=== PATIENT | female | born 1955 | race Caucasian/White ===

== ENCOUNTER → 2016-12-02 | Outpatient (CLI) | payer OTHER ==
[~2016-12-02] MED LIST: ACET1TAB84 PO; BIOTCAP2 PO; CETI10TA84 PO; CHOL100010 PO; ESTR0.3T PO; LEVO75TA PO; LISI20TA55 PO; VENL150C56 PO
--- NOTE | 2016-12-03 12:44 | MAMMOGRAPHY REPORT ---
BILATERAL DIGITAL SCREENING MAMMOGRAM TOMOSYNTHESIS WITH CAD: 12/02/2016 CLINICAL HISTORY: Routine screening. Patient has no complaints. TECHNIQUE: Breast tomosynthesis in addition to standard 2D mammography was performed. Current study was also evaluated with a Computer Aided Detection (CAD) system. COMPARISON: Comparison is made to exams dated: 07/21/2015 mammogram, 08/26/2010 mammogram - [facility], and 08/22/2009. BREAST COMPOSITION: There are scattered areas of fibroglandular density in both breasts. FINDINGS: No suspicious masses, calcifications, or areas of architectural distortion are noted in e ither breast. There has been no significant interval change compared to prior exams. Small 4 mm asy mmetry seen within the left superior posterior breast on the MLO view has the appearance of normal f ibroglandular tissue on the tomosynthesis images. IMPRESSION: ACR BI-RADS CATEGORY 2: BENIGN There is no mammographic evidence of malignancy. A 1 year screening mammogram is recommended. The p atient will receive written notification of the results. Approximately 10% of breast cancers are not detected with mammography. A negative mammographic repor t should not delay biopsy if a clinically suggestive mass is present. Taryn Moore M.D. /:12/02/2016 16:13:59 [employer]: Cherelle DUNBAR)([place])([place]), [facility] letter sent: Normal 1/2 BI-RADS Code: ACR BI-RADS Category 2: Benign
== END | disposition home or self-care (01) ==
LOC: C.MAMM 15:45
PROVIDERS: ATTEND Family Medicine
DX: Z12.31 Encounter for screening mammogram for malignant neoplasm of breast (principal)

== ENCOUNTER → 2016-12-31 | Outpatient (CLI) | payer OTHER | LOC: C.PAIN 11:30 ==

== ENCOUNTER → 2017-04-28 | Outpatient (CLI) | payer OTHER ==
--- NOTE | 2017-04-29 08:11 | DIAGNOSTIC IMAGING REPORT ---
CT OF THE CHEST WITHOUT IV CONTRAST CLINICAL HISTORY: Shortness of breath. Tobacco use. COMPARISON STUDY: Chest radiograph May 06, 2016. CT DOSE: 449.66 mGy.cm TECHNIQUE: Axial images of the chest were obtained without IV contrast. Images were reviewed in the axial, sagittal, and coronal planes. IV contrast was not administered for this examination. FINDINGS: No enlarged axillary, mediastinal or hilar lymph nodes are present. The heart is mildly enlarged. Ascending aorta is mildly dilated, measuring 3.9 cm at the level pf the main pulmonary artery. There is no pericardial effusion. The central airways are patent. There is moderate to severe upper lobe predominant emphysema. There are no suspicious pulmonary nodules. A few tiny calcified nodules are noted. These are benign. There are no areas of consolidation to suggest pneumonia. An intrathecal catheter is present. Bony thorax is unremarkable. Left kidney is not identified within the left renal fossa. Otherwise, the upper abdomen is unremarkable on this unenhanced study. IMPRESSION: 1. Moderate to severe upper lobe predominant emphysema. 2. No suspicious pulmonary nodules. 3. No acute intrathoracic findings. 4. Mild cardiomegaly and mild dilatation of the ascending aorta which measures 3.9 cm. Electronically signed by: Norman Fyre M.D. 04/29/2017 8:10 AM Dictated Date/Time: 04/28/2017 4:37 PM
== END | disposition home or self-care (01) ==
LOC: C.CTS 16:26
PROVIDERS: ATTEND Family Medicine
DX: F17.200 Nicotine dependence, unspecified, uncomplicated (principal); J43.9 Emphysema, unspecified

== ENCOUNTER → 2017-07-14 | Outpatient (CLI) | payer OTHER ==
[~2017-07-14] MED LIST changes: +GADAVIST IV PRN
--- NOTE | 2017-07-14 11:55 | DIAGNOSTIC IMAGING REPORT ---
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 Patient had a brain MR recently conducted at an outside institution which demonstrated a possible left adrenal lesion. This is a follow-up study. COMPARISON: Cervical spine MR 06/06/2014, CT maxillofacial study 12/15/2009. TECHNIQUE: Multiplanar multisequence MRI of the soft tissues of the neck was obtained both with and without the use of 10 ml Gadavist. FINDINGS: The imaged upper thorax and head structures show no gross abnormality. There is no focal bone marrow edema or fracture identified. There are apparent left greater than right perineural root sleeve cysts noted at the upper thoracic spine at T1-T2 measuring up to 1.6 x 1.0 cm. There is an ovoid circumscribed lesion with some marginal macro lobulations along its superior posterior margin which is T1 isointense to musculature and is avidly T2 hyperintense within the mid superficial parotid gland directly posterior to the mandible, 1.5 x 1.7 x 1.8 cm in AP, transverse and craniocaudal dimensions demonstrating avid central enhancement nicely seen on image 12 of the postcontrast axial T1 series. The superior margin of the lesion as well as a thin peripheral area laterally does not enhance. No associated invasion into adjacent structures. No additional enhancing lesions are identified. The right parotid gland is unremarkable. In retrospect, this lesion was likely present dating back to maxillofacial study 12/15/2009 and appeared similar in size. IMPRESSION: 1. Centrally enhancing T2 hyperintense circumscribed ovoid lesion of the left mid superficial parotid gland is noted measuring up to 1.8 cm without associated invasion into adjacent structures. In retrospect, this lesion was present on maxillofacial study dated 12/15/2009 and appears similar in size suggesting nonaggressive or benign characteristics. Differential considerations would include Warthin's tumors or pleomorphic adenoma among other etiologies. This could be further evaluated with tissue sampling. 2. No additional enhancing lesions are identified. The above report was generated using voice recognition software. It may contain grammatical, syntax or spelling errors. Electronically signed by: Gopal Juan M.D. 07/14/2017 11:53 AM Dictated Date/Time: 07/14/2017 11:38 AM
== END | disposition home or self-care (01) ==
LOC: C.MRI 09:43
PROVIDERS: ATTEND Family Medicine
DX: K11.8 Other diseases of salivary glands (principal)

== ENCOUNTER → 2017-10-04 | Outpatient (CLI) | payer OTHER ==
[~2017-10-04] MED LIST changes: -GADAVIST IV PRN
== END ==
LOC: C.PAIN 11:01

== ENCOUNTER 2023-11-17 06:27 | Observation (INO) ==
--- NOTE | 2023-10-18 10:44 | PAT Medication Instructions ---
Medication Instructions Date of Service October 18, 2023 Home Medications levothyroxine 75 mcg tablet 75 mcg PO QAM lisinopril 20 mg-hydrochlorothiazide 25 mg tablet 1 tab PO QAM venlafaxine 150 mg capsule,extended release 24 hr (Effexor XR) 150 mg PO QAM hydroxychloroquine 200 mg tablet (Plaquenil) 200 mg PO BID cetirizine 10 mg capsule 10 mg PO QAM allopurinol 100 mg tablet 100 mg PO BID folic acid 1 mg tablet 3 mg PO QAM methotrexate sodium 2.5 mg tablet 10 mg PO Q7D ASK your prescriber and surgeon hydroxychloroquine 200 mg tablet (Plaquenil) 200 mg PO BID STOP 7 days prior to surgery (if okay with prescriber) methotrexate sodium 2.5 mg tablet 10 mg PO Q7D DO NOT take the morning of surgery lisinopril 20 mg-hydrochlorothiazide 25 mg tablet 1 tab PO QAM cetirizine 10 mg capsule 10 mg PO QAM folic acid 1 mg tablet 3 mg PO QAM Take morning of surgery With a small sip of water, OTHERWISE NOTHING TO EAT OR DRINK AFTER MIDNIGHT: levothyroxine 75 mcg tablet 75 mcg PO QAM venlafaxine 150 mg capsule,extended release 24 hr (Effexor XR) 150 mg PO QAM allopurinol 100 mg tablet 100 mg PO BID Take evening before surgery allopurinol 100 mg tablet 100 mg PO BID Other Notes If you have any questions please call us at [phone] or [phone] or [phone] or [phone]
--- NOTE | 2023-10-24 10:36 | Anesthesiology Consultation ---
Date of Service October 24, 2023 Assessment & Plan (1) Encounter for pre-operative examination: - awaiting carotid imaging from PCP, Dr. Tabitha Weaver and pre-operative evaluation [phone]. I contacted PCP and spoke La who advised she will relay need for carotid imaging. PCP office scheduled appointment for evaluation 10/28/23 at 2 pm. Patient confirmed appointment date and time while at PAT appointment. Optimization form to be faxed regarding right carotid bruit, h/o TIA in 2017, intermittent dysarthria and dyspnea on exertion with PAT testing to [phone] per La with PCP office. - right carotid bruit: patient notes difficulty finding words ongoing over the past year; denies recent change or worsening. No difficulty finding words per patient today in PAT clinic, patient speaking clearly, coherently without evident difficulty finding words throughout visit. She denies dizziness, lightheadedness, presyncope, visual changes, altered speech, confusion, imbalance, numbness, weakness or headache. Patient made aware of carotid bruit a nd need for PCP evaluation and imaging. She was instructed to call 911 for new or changed symptoms. Patient states PCP is aware of intermittent difficulty finding words and patient was evaluated earlier this year. She is aware carotid imaging will be needed prior to surgery through PCP and she is agreeable, denied questions or concerns. - spinal cord stimulator: patient aware to bring remote to hospital DOS. Chart Review Chart Review: Pending: Refer to Additional Notes / Consult section and Patient seen in Pre Admission Testing Teaching & Discussion Pre-Anesthesia Teaching/Discussion Notes: Instructed NPO after midnight before surgery, except medications with 15 cc of water. Medication instructions provided according to the PAT guidelines. History Surgery Operation Date: 11/18/23 07:00 Proposed Procedures p Left Reverse Total Shoulder Arthroplasty - Kirby Alvarez DO Height/Weight Height: 5 ft 2 in Weight: 75.9 kg Allergies Allergy/AdvReac Type Severity Reaction Status Date / Time NSAIDS (Non-Steroidal AdvReac Severe Worsened Verified 10/20/23 10:23 Anti-Inflamma kidney function Sulfa (Sulfonamide AdvReac Intermediate Yeast Verified 10/20/23 10:23 Antibiotics) infections Medications Home Medications Medication Instructions Recorded Confirmed Last Taken levothyroxine 75 mcg tablet 75 mcg PO QAM 02/08/19 10/18/23 02/28/19 lisinopril 20 1 tab PO QAM 02/08/19 10/18/23 02/28/19 mg-hydrochlorothiazide 25 mg tablet venlafaxine 150 mg 150 mg PO QAM 02/08/19 10/18/23 02/28/19 capsule,extended release 24 hr (Effexor XR) hydroxychloroquine 200 mg tablet 200 mg PO BID 10/15/19 10/18/23 Unknown (Plaquenil) cetirizine 10 mg capsule 10 mg PO QAM 05/06/20 10/18/23 Unknown allopurinol 100 mg tablet 100 mg PO BID 10/18/23 10/18/23 Unknown folic acid 1 mg tablet 3 mg PO QAM 10/18/23 10/18/23 Unknown methotrexate sodium 2.5 mg tablet 10 mg PO Q7D 10/18/23 10/18/23 Unknown albuterol sulfate 90 mcg/actuation inhalation PRN Shortness Of Breath 10/24/23 Unknown breath activated powder inhaler Or Wheezing Additional Notes: Patient reported albuterol inhaler as needed. This was added to EMR, she was instructed to use inhaler as needed. She verbalized understanding and agreement, denied questions, concerns or medications. Past Medical History Medical History (Updated 10/24/23 @ 11:21 by Loly Sharma PA-C) Right carotid bruit noted at 10/24/23 PAT visit History of blood transfusion rossi-operative with right shoulder surgery Rheumatoid arthritis Taking MTX + Plaquenil Gout last flare one year ago Lumbar post-laminectomy syndrome Degenerative disc disease Kidney disease solitary kidney s/p left nephrectomy (d/t non-functioning per patient) Stage III Graves disease s/p "radioactive pill" Hypothyroidism Anemia Bipolar disorder Transient ischemic attack (TIA) 2016 Hypertension controlled, stable per pt Chronic obstructive pulmonary disease chronic, stable per pt; last rescue inhaler use one year ago Patient denies h/o seizures, heart attack, heart failure, DM, or blood clots/DVTs. Exercise / Class Metabolic Activity II 4-5 Yardwork/Stairs/Walk up hill (SOB with 1 FOS ongoing x yrs without change or worsening; denies chest discomfort) Past Family History Family History Mother Family history of diabetes mellitus Aunt Family history of diabetes mellitus Uncle Family history of diabetes mellitus Past Surgical History Surgical History (Updated 10/24/23 @ 10:49 by Loly Sharma PA-C) Hx of hand surgery right hand/wrist Hx of colonoscopy History of anesthesia reaction Numbness and difficulty taking deep breaths after right shoulder surgery (? r/t PNB); required supplemental oxygen per pt; denies re-intubation History of total abdominal hysterectomy and bilateral salpingo-oophorectomy History of repair of rotator cuff right x2 Spinal cord stimulator status advised to bring remote DOS Fusion of spine LUMBAR L4-S1 History of nephrectomy left History of cholecystectomy History of laparoscopy x2 History of tooth extraction History of endoscopic sinus surgery Past Anesthesia History No Family Hx of Anesthesia Complications and Other (Numbness and difficulty taking deep breaths after last shoulder surgery (? r/t PNB); required supplemental oxygen per pt; denies re-intubation) History of PONV No Hx of PONV and No Hx of Motion Sickness Social History Smoking Status: Current every day smoker (-advised) tobacco type: cigarettes Smoking cigarettes per day: 20 Do You Dip or Chew Tobacco: No Hx Alcohol Use: Yes Alcohol type: wine alcohol intake frequency: holidays/special occasions only Hx Substance Use: No substance use type: does not use Review of Systems Patient denies chest pain, snoring, witnessed apneas, reflux, fever, chills, cough, wheezing, or palpitations. Physical Exam Vital Signs Vitals BP 149/68 P 55 TEMP 98.1 SP02 96% on RA RESP 17 Physical Patient resting comfortably in chair in no acute distress, alert and oriented, speaking clearly, coherently and responding appropriately throughout visit Full cervical extension range of motion without pain TMD 3.5 finger breadths Mallampati Score 2 Dentition: two partial plates; denies chipped or loose teeth, caps/crowns, implants or bridges Lungs: normal respiratory effort. Good air movement, clear throughout to auscultation, no adventitious breath sounds Cardiac: regular rate and rhythm, no murmurs noted Carotid arteries: right carotid bruit; no left carotid bruit Lab Results Anesthesia Preop Results Results Anesthesia Widget: WBC 8.27 K/ul (4.8-10.8) 10/24/23 Hgb 11.1 g/dl (12.0-16.0) L 10/24/23 Hct 34.0 % (37.0-47.0) L 10/24/23 Plt 208 K/uL (130-400) 10/24/23 Na 140 mmol/L (136-145) 10/24/23 K 4.3 mmol/L (3.5-5.1) 10/24/23 Cl 106 mmol/L (98-107) 10/24/23 CO2 28 mmol/L (21-32) 10/24/23 BUN 29 mg/dl (6-23) H 10/24/23 Creat 1.12 mg/dl (0.6-1.2) 10/24/23 Glucose Level 78 mg/dl (70-99(Fasting)) 10/24/23 PT 10.3 Seconds (9.0-12.0) 10/24/23 PTT 24.5 Seconds (21.0-31.0) 10/24/23 INR 0.9 (0.9-1.1) 10/24/23 Blood Type O Positive 10/24/23 Antibody Screen NEGATIVE 10/24/23 Testing Electrocardiogram Date: 10/24/23 Sinus bradycardia, rate 58 bpm Otherwise normal ECG When compared with 02/22/19 ECG, ST elevation now present in inferior leads (appears to be artifact d/t neurostimulator) Nonspecific T wave abnormality no longer evident in inferior leads Patient did not have neurostimulator remote at PAT visit, significant artifact noted EKG reviewed, patient was asymptomatic at time of EKG during PAT visit, nothing additional needed-to anesthesiologist determination if repeat EKG needed am DOS. Chest X-Ray Date: 10/24/23 No acute process.
--- NOTE | 2023-11-16 07:31 | History & Physical Report ---
Date of Service November 16, 2023 Assessment & Plan (1) Rotator cuff arthropathy of left shoulder: We will proceed with a left reverse shoulder arthroplasty. Postoperatively she will be placed in a sling and kept overnight hospital for postop medical management. She plans to go to outpatient physical therapy in [place] upon discharge. History of Present Illness Chief Complaint: Cuff tear arthropathy of the left shoulder. Primary Care Provider: Tabitha Weaver DO Karla is a pleasant 68-year-old female who is well known to me. I did a superior capsular reconstruction on the right shoulder in the past. She has actually done very well with that. Unfortunately, she is now dealing with left shoulder pain. She had a fall about 2-1/2 months ago. She denies any shoulder pain before the fall. She is now having trouble lifting the arm away from her body or doing anything overhead. X-rays and MRI are diagnostic for cuff tear arthropathy left shoulder. After failing conservative treatment, she has elected proceed with a left reverse shoulder arthroplasty. Allergies Allergy/AdvReac Type Severity Reaction Status Date / Time NSAIDS (Non-Steroidal AdvReac Severe Worsened Verified 10/20/23 10:23 Anti-Inflamma kidney function Sulfa (Sulfonamide AdvReac Intermediate Yeast Verified 10/20/23 10:23 Antibiotics) infections Home Medications Medication Instructions Recorded Confirmed Type levothyroxine 75 mcg tablet 75 mcg PO QAM 02/08/19 10/18/23 History lisinopril 20 1 tab PO QAM 02/08/19 10/18/23 History mg-hydrochlorothiazide 25 mg tablet venlafaxine 150 mg 150 mg PO QAM 02/08/19 10/18/23 History capsule,extended release 24 hr (Effexor XR) hydroxychloroquine 200 mg tablet 200 mg PO BID 10/15/19 10/18/23 History (Plaquenil) cetirizine 10 mg capsule 10 mg PO QAM 05/06/20 10/18/23 History allopurinol 100 mg tablet 100 mg PO BID 10/18/23 10/18/23 History folic acid 1 mg tablet 3 mg PO QAM 10/18/23 10/18/23 History methotrexate sodium 2.5 mg tablet 10 mg PO Q7D 10/18/23 10/18/23 History albuterol sulfate 90 mcg/actuation inhalation PRN Shortness Of Breath 10/24/23 History breath activated powder inhaler Or Wheezing Past Med/Surg History Medical History Right carotid bruit noted at 10/24/23 PAT visit History of blood transfusion rossi-operative with right shoulder surgery Rheumatoid arthritis Taking MTX + Plaquenil Gout last flare one year ago Lumbar post-laminectomy syndrome Degenerative disc disease Kidney disease solitary kidney s/p left nephrectomy (d/t non-functioning per patient) Stage III Graves disease s/p "radioactive pill" Hypothyroidism Anemia Bipolar disorder Transient ischemic attack (TIA) 2016 Hypertension controlled, stable per pt Chronic obstructive pulmonary disease chronic, stable per pt; last rescue inhaler use one year ago Surgical History Hx of hand surgery right hand/wrist Hx of colonoscopy History of anesthesia reaction Numbness and difficulty taking deep breaths after right shoulder surgery (? r/t PNB); required supplemental oxygen per pt; denies re-intubation History of total abdominal hysterectomy and bilateral salpingo-oophorectomy History of repair of rotator cuff right x2 Spinal cord stimulator status advised to bring remote DOS Fusion of spine LUMBAR L4-S1 History of nephrectomy left History of cholecystectomy History of laparoscopy x2 History of tooth extraction History of endoscopic sinus surgery Family History Mother Family history of diabetes mellitus Aunt Family history of diabetes mellitus Uncle Family history of diabetes mellitus Social History Smoking Status: Current every day smoker (-advised) Tobacco Type: Cigarettes Cigarettes Per Day: 20; Second Hand Exposure: Yes; Do You Dip or Chew Tobacco: No; Tobacco Cessation Education Requested by Patient: No Hx Alcohol Use: Yes Alcohol type: wine Hx Substance Use: No Preferred Language: Latvian Communication Ability: Effective Skiver Sock Linings Required: No Beliefs That Will Affect Care: None Current Living Situation: Spouse Other Information That Helps Us Care for You: No Feels Safe at Home: Yes Safety Concerns: Feels Safe At This Time Assistive Devices: Denture - Upper, Denture - Lower and Glasses Assistive Devices Comment: upper and lower partial plates Review of Systems All systems reviewed & are unremarkable except as noted in HPI & below. Physical Exam On physical examination of the left shoulder, she only has about 40 degrees of forward elevation 40 degrees of abduction. She has 3 out of 5 motor strength with full can test and external rotation.. Constitutional WD/WN, vitals as above Eyes PERRL, conjunctivae normal, anicteric sclerae ENMT external ear and nose normal, oropharynx normal Neck trachea midline, no thyromegaly Respiratory normal respiratory effort Cardiovascular RRR, no murmur, no edema Gastrointestinal (Abdomen) normal bowel sounds, soft, nontender, no hepatosplenomegaly Psychiatric A+Ox3, euthymic affect Results & Data Results & Data Laboratory Results . Diagnostic Findings MRI of the left shoulder shows a large retracted rotator cuff tear. Is likely acute on chronic injury. There is significant fat atrophy of the supraspinatus and infraspinatus muscle bellies.. PG Care Time/CCT Total # of Minutes Spent Total Time Spent with Patient: Total time spent is greater than 50% in coordination of care (as documented) at patient's floor/unit and/or counseling patient: Coding Level of Care Code None Diagnoses Rotator cuff arthropathy of left shoulder M12.812
[~2023-11-17 06:27] MED LIST changes: -ACET1TAB84 PO; +ACETAMINOPHEN 500 MG TAB PO SCH; -BIOTCAP2 PO; +BUPIVACAINE 0.5 % 5 MG/1 ML PF 10ML VIAL ONE; -CETI10TA84 PO; -CHOL100010 PO; -ESTR0.3T PO; +FAMOTIDINE 20 MG TAB PO SCH; +GABAPENTIN 300 MG CAP PO SCH; -LEVO75TA PO; -LISI20TA55 PO; +LR 15ML/HR IV SCH; +LR 60ML/HR IV SCH; +ORTHO JOINT MIX INFIL SCH; +TRANEXAMIC ACID 1,000 MG **IV Intra-op IV SCH; +TRANEXAMIC ACID 1,000 MG **IV Pre-op IV SCH; -VENL150C56 PO; +ceFAZolin 2000MG 2,000 MG/15 ML SYR IV SCH; +dexAMETHasone 4 MG TAB PO SCH
--- NOTE | 2023-11-17 06:44 | History & Physical Bridge Note ---
Date of Service November 17, 2023 History & Physical Bridge Note I have examined the patient, reviewed the History & Physical and in the interval since the performance of the History & Physical I have noted the following changes of clinical significance: no changes noted
[2023-11-17] MEDS ORDERED: DEXAMETHASONE SOD INJ 4 MG/ML VIAL ONE (06:54)
[2023-11-17] MEDS ORDERED: LIDOCAINE 2% 2 ML VIAL/AMP(20MG/ML) INFIL ONE ×2 (06:54→07:05)
[2023-11-17] MEDS ORDERED: MIDAZOLAM HCL 1 MG/ML 2ML VIAL ONE (06:54)
[2023-11-17] MEDS ORDERED: fentaNYL citrate PF 100 MCG/2 ML VIAL ONE (06:54)
[2023-11-17] MEDS ORDERED: PROPOFOL IV EMULSION 10 MG/ML 20 ML VIAL IV ONE (06:54)
[2023-11-17] MEDS ORDERED: ONDANSETRON INJ 2 MG/ML 2 ML VIAL ONE (06:54)
[2023-11-17] MEDS ORDERED: ORTHO JOINT ANESTHETIC ONE (07:14)
[2023-11-17] MEDS ORDERED: BUPIVACAINE 0.25% PF 30 ML VIAL ONE (07:28)
[2023-11-17] MEDS ORDERED: ATROPINE SULFATE 0.1 MG/ML 10ML SYR IV PRN (08:39)
[2023-11-17] MEDS ORDERED: PROMETHAZINE HCL 6.25 MG in SODIUM CHLORIDE 0.9% 50 ML IV PRN (08:39)
[2023-11-17] MEDS ORDERED: ePHEDrine sulfate 50 MG/ML AMP IV PRN (08:39)
[2023-11-17] MEDS ORDERED: fentaNYL citrate PF 100 MCG/2 ML VIAL IV PRN (08:39)
[2023-11-17] MEDS ORDERED: ONDANSETRON INJ 2 MG/ML 2 ML VIAL IV PRN ×2 (08:39→11:16)
[2023-11-17] MEDS ORDERED: ePHEDrine sulfate 50 MG/5 ML SYR ONE (09:02)
[2023-11-17] MEDS ORDERED: WATER, STERILE FOR INJ 10 ML VIAL ONE (09:13)
[2023-11-17] MEDS ORDERED: PHENYLEPHRINE 100MCG/ML 10ML SYR IV ONE (09:14)
--- NOTE | 2023-11-17 09:52 | Operative Report ---
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 A tenodesis was opted. This was a separate and distinct portion of the procedure. For these reasons, a CPT code modifier 59 will be added to this case. Implants used: I used a [employer] Comprehensive reverse total shoulder arthroplasty system with a size 11 press fit micro humeral stem, a +6 offset humeral tray and a standard humeral bearing, a 25 mm small augment baseplate with a 6.5 mm central screw and superior and inferior locking screws, and a size 36 mm eccentric glenosphere. Karla arrived at [facility] for the above procedure. She was seen in the preoperative holding area and the operative extremity was identified and signed. She was given a preoperative antibiotic, TXA, and an interscalene nerve block. She was taken back to the operating room, laid on table in supine position, and put under general anesthesia. She was then put into the beachchair position. The shoulder was then prepped and draped in sterile fashion. A timeout was done and the patient and the operative extremity was properly identified. A deltopectoral approach was used. Dissection was taken down through the fascia and the deltoid was retracted laterally and the conjoined tendon was retracted medially. The anterior shoulder was exposed. The biceps groove was opened up and the biceps tendon was examined extensively. The biceps tendon demonstrated enlargement and inflammatory changes consistent with longstanding inflammation i n the context of osteoarthritis and cuff arthropathy. The long head of the biceps tendon was then tenodesed to the upper border of the pectoralis major. This was a separate and distinct portion of the procedure. The subscapularis was then directly released off the lesser tuberosity with a peel technique. The inferior capsule was released and the humeral head was dislocated. A canal finding reamer was sent down the center of the humeral canal. Sequential reaming up to a size 11 reamer was done. Off that reamer, a proximal humeral resection guide was placed. The proximal humerus was resected at 135 of inclination and 25 of retroversion. Osteophytes were then removed and the glenoid was exposed. Time was spent doing a complete capsular and labral release. The glenoid guide was then placed in the inferior aspect of the glenoid. A 3.2 mm Steinmann pin was then placed into the glenoid vault at 10 of inclination. The glenoid baseplate was then reamed. The final size 25 mm small augment baseplate was then impacted in the place. A 6.5 mm central screw was then placed followed by superior and inferior locking screws. A 36 mm eccentric glenosphere was then impacted into place. Surrounding soft tissues were then injected with 100 cc an orthopedic pain control cocktail. The proximal humerus was then exposed. Sequential broaching of the humerus up to a size 11 broach was done. Off that broach a +6 offset humeral tray was trialed. The shoulder was then reduced, brought through a full range of motion, and felt to be stable. The shoulder was then dislocated and the broach was removed. The final size 11 micro press-fit humeral stem was then impacted into place. A standard humeral bearing was then snapped onto a +6 offset humeral tray. The humeral tray was th en impacted onto the humeral stem. The shoulder was once again reduced, brought through a full range of motion, and felt to be stable. The subscapularis was then tenodesed back to the lesser tuberosity with transosseous FiberWire sutures and side to side sutures with the arm in 45 of external rotation. A dilute betadyne lavage was then done for 3 minutes. The joint was then irrigated with normal saline solution. Hemostasis was obtained. The interval was closed with 2-0 Vicryl suture. The skin was then closed with 2-0 Vicryl and federico. A Silverlon dressing was placed and the arm was rested in a regular arm sling. She was then extubated and transferred to a hospital bed. She taken to the postanesthesia care unit in stable condition. She tolerated the procedure well. Gopal Coker PA-C, was present for the entire procedure. He was critical for patient positioning, prepping, draping, retraction exposure, wound closure and application of sterile dressing. I attest to the content of the Intraoperative Record and any orders documented therein. Any exceptions are noted below.
--- NOTE | 2023-11-17 10:45 | XRay Report ---
XR shoulder LT min 2V routine HISTORY: 68 years-old Female Post shoulder surgery left shoulder arthroplasty COMPARISON: Radiographs 07/07/2023 TECHNIQUE: 2 views the left shoulder FINDINGS: Reverse total arthroplasty demonstrates satisfactory alignment. No acute fracture or unexpected opaqu e foreign body. Overlying skin federico are noted along with expected postoperative soft tissue swelli ng. Partially imaged leads project over the mid chest. IMPRESSION: Left shoulder arthroplasty with expected postoperative changes. ACT 112: Negative or not required by law. The above report was generated using voice recognition software. It may contain grammatical, syntax o r spelling errors. Electronically signed by: Jean Carlos Juan M.D. 11/17/2023 10:43 AM
--- NOTE | 2023-11-17 10:57 | Anesthesiology Progress Note ---
Date of Service November 17, 2023 Anesthesia Post Procedure Vital Signs Vital Signs: Temp Pulse Pulse Resp BP Pulse Ox O2 Del Method 11/17/23 10:45 52 L 14 124/50 L 96 Oxymask 11/17/23 10:35 53 L 15 134/55 L 95 Oxymask 11/17/23 10:25 54 L 14 133/58 L 100 Oxymask 11/17/23 10:15 36 C L 55 L 13 149/61 H 99 Oxymask 11/17/23 06:53 37.0 C 66 18 146/79 H 95 Room Air O2 Flow Rate 11/17/23 10:45 2 11/17/23 10:35 2 11/17/23 10:25 4 11/17/23 10:15 6 11/17/23 06:53 Transfer of Care Handoff Completed per policy Notes Mental Status: alert / awake / arousable Patient Amnestic to Procedure: Yes Nausea / Vomiting: adequately controlled Pain: adequately controlled Airway Patency, RR, SpO2: stable & adequate BP & HR: stable & adequate Hydration State: stable & adequate Anesthetic Complications: no major complications apparent
[2023-11-17] MEDS ORDERED: bisacodyL 10 MG SUPP PR PRN (11:16)
[2023-11-17] MEDS ORDERED: traMADol HCL 50 MG TABLET PO PRN (11:16)
[2023-11-17] MEDS ORDERED: oxyCODONE HCL IR 5 MG TAB (IMMEDIATE RELEASE) PO PRN (11:16)
[2023-11-17] MEDS ORDERED: HYDROmorphone INJ 0.5 MG/0.5 ML SYR IV PRN (11:16)
[2023-11-17] MEDS ORDERED: NALOXONE HCL 0.4 MG/1 ML VIAL/CARP IV PRN (11:16)
[2023-11-17] MEDS ORDERED: METOCLOPRAMIDE HCL INJ 5 MG/ML 2 ML VIAL IV PRN (11:16)
[2023-11-17] MEDS ORDERED: MAGNESIUM HYDROXIDE SUSP 30 ML UDC PO PRN (11:16)
[2023-11-17] MEDS: SODIUM CHLORIDE 0.9% 1,000 ML IV SCH ×2 (12:32→23:45)
[2023-11-17] MEDS: KETOROLAC TROMETHAMINE 15 MG/ML VIAL IV SCH ×3 (12:32→23:04)
[2023-11-17] MEDS: ACETAMINOPHEN 500 MG TAB PO SCH ×2 (14:44→23:03)
[2023-11-17] MEDS: ceFAZolin 2000MG 2,000 MG/15 ML SYR IV SCH ×2 (15:50→23:04)
[2023-11-17] MEDS: allopurinoL 100 MG TAB PO SCH (20:35)
[2023-11-17] MEDS: HYDROXYCHLOROQUINE SULFATE 200 MG TAB PO SCH (20:35)
[2023-11-17] MEDS: DOCUSATE SODIUM 100 MG CAP PO SCH (20:36)
[2023-11-17] MEDS ORDERED: SENNA 8.6 MG TAB PO SCH (21:00)
[2023-11-18] MEDS: KETOROLAC TROMETHAMINE 15 MG/ML VIAL IV SCH (05:47)
[2023-11-18] MEDS: ACETAMINOPHEN 500 MG TAB PO SCH (05:47)
[2023-11-18] MEDS ORDERED: LEVOTHYROXINE SODIUM 75 MCG TABLET PO SCH (06:30)
[2023-11-18] MEDS ORDERED: dexAMETHasone 4 MG TAB PO SCH (08:00)
[2023-11-18] MEDS: allopurinoL 100 MG TAB PO SCH (08:47)
[2023-11-18] MEDS: DOCUSATE SODIUM 100 MG CAP PO SCH (08:48)
[2023-11-18] MEDS: HYDROXYCHLOROQUINE SULFATE 200 MG TAB PO SCH (08:48)
[2023-11-18] MEDS ORDERED: LISINOPRIL/HCTZ 20/25MG 1 TAB PO SCH (09:00)
[2023-11-18] MEDS ORDERED: MULTIVITAMIN TAB PO SCH (09:00)
[2023-11-18] MEDS ORDERED: VENLAFAXINE HCL XR 150 MG CAPXR PO SCH (09:00)
--- NOTE | 2023-11-18 10:37 | Orthopedic Progress Note ---
Date of Service November 18, 2023 Assessment & Plan (1) Status post reverse total replacement of left shoulder: Overall, she is doing quite well today with good pain control to the left shoulder. She will be seen and evaluated by physical therapy later this morning to work on range of motion exercises of the left upper extremity. She may be discharged later this morning pending her physical therapy evaluation. She will follow-up with orthopedics in 2 weeks for postoperative care. Subjective . Karla was seen and evaluated at bedside this morning resting comfortably in no apparent distress. She notes that her pain is well-controlled the left shoulder . She has been up and ambulated with no issues in her sling. She denies any other concerns today. Review of Systems All systems reviewed & are unremarkable except as noted in HPI & below. Physical Exam . On physical examination of the left shoulder, dressing is in place, clean, dry and intact. Sling is in place. Active range of the elbow, wrist, and all 5 digits. +2 radial pulse. Less than 2-second capillary refill. Normal sensation. Neurovascular intact. Results & Data Results & Data Laboratory Results . Diagnostic Findings . Postoperative x-rays of the left shoulder show prosthesis to be in anatomical alignment with no signs of fracture complication or loosening. PG Care Time/CCT Total # of Minutes Spent Total Time Spent with Patient: Total time spent is greater than 50% in coordination of care (as documented) at patient's floor/unit and/or counseling patient: Coding Level of Care Code 31370 Post Operative Follow-Up Diagnoses Status post reverse total replacement of left shoulder Z96.612
--- NOTE | 2023-11-18 10:39 | Discharge Summary ---
Date of Service November 18, 2023 Admission HPI (Per Admitting) Karla is a pleasant 68-year-old female who is well known to me. I did a superior capsular reconstruction on the right shoulder in the past. She has actually done very well with that. Unfortunately, she is now dealing with left shoulder pain. She had a fall about 2-1/2 months ago. She denies any shoulder pain before the fall. She is now having trouble lifting the arm away from her body or doing anything overhead. X-rays and MRI are diagnostic for cuff tear arthropathy left shoulder. After failing conservative treatment, she has elected proceed with a left reverse shoulder arthroplasty. Admission Exam (Per Admitting) On physical examination of the left shoulder, she only has about 40 degrees of forward elevation 40 degrees of abduction. She has 3 out of 5 motor strength with full can test and external rotation.. Principal Diagnosis Same as "Discharge Diagnosis" noted below under Discharge Instructions. Discharge Exam . On physical examination of the left shoulder, dressing is in place, clean, dry and intact. Sling is in place. Active range of the elbow, wrist, and all 5 digits. +2 radial pulse. Less than 2-second capillary refill. Normal sensation. Neurovascular intact. Discharge Data Procedures Performed Operation Date: 11/17/23 08:00 Actual Procedures p Left Reverse Total Shoulder Arthroplasty(Left) - Kirby Alvarez DO Ordered Studies 11/17/23 05:00 US - OR guided needle placemen Routine Hospital Course (1) Status post reverse total replacement of left shoulder: On November 17, 2023 Karla arrived at [facility] and underwent a left reverse total shoulder arthroplasty without complications. She had a g eneral anesthetic. Postoperatively, she was transferred to the PACU for immediate postoperative care and then transition to the general orthopedic floor in stable condition. Her hospital course was uneventful. On postoperative day #1, her vital signs were stable and her pain was well-controlled. She participated well with physical therapy working on ambulation exercises. She was then discharged home in stable condition. She will follow-up with orthopedics in 2 weeks for postoperative care. PG Care Time/CCT Total # of Minutes Spent Total Time Spent with Patient: Total time spent is greater than 50% in coordination of care (as documented) at patient's floor/unit and/or counseling patient: Discharge Plan Discharge Items Patient Disposition: Home - Self-Care Reason For Visit: DJD Left Shoulder Discharge Diagnosis: Same Activity: Per Instructions section Non-emergency contact: Surgeon Call non-emergency contact if: your temperature is above 101.5, your wound has increased redness and your wound has increased drainage Follow-up/Referrals: Tabitha Weaver DO [Primary Care Provider] - Diet: Regular Ambulatory Orders: XR cervical spine 2 or 3V (Routine) Timeframe: 1 Day Location: Determined by Patient Ordered By: Gena Piña Attending Provider Instructions: Activity and Therapy Recommendations: * If you are using [facility] then therapy will be provided at your home until they feel you have accomplished all of your goals. * If you are using [facility] then Physical Therapy will be provided until they feel you are ready to start Outpatient Physical Therapy. * If you are not using home therapy then Outpatient Physical Therapy should start about 3-5 days from your day of surgery. Therapy will last about 8-12 weeks * Wear your sling for 3 weeks, unless otherwise instructed. You may remove your sling to shower and to dress, but otherwise, you should be in your sling at all times, including while sleeping * The shoulder replacement is very stable and you can use your hand while in the sling * You were shown a series of exercises in the hospital. Do these exercises daily including the exercises you were shown in physical therapy. Medications: * Narcotic You will likely be sent home from the hospital with a prescription for the narcotic pain medication that worked best throughout your stay. * Cefadroxil -take the antibiotic twice a day for 10 days to help prevent infection. * Other medications may be prescribed for specific circumstances. If you have any questions, please call the office at . * Resume previous home medications unless otherwise instructed Dressing Care: Leave the Silverlon dressing in place for 7 days. After 7 days you may remove the dressing. If the incision is not draining then you may leave the federico open to air. If there is a little bit of drainage or if the federico are getting stuck on your clothing then cover the incision with a dry dressing. The federico will be removed at your 2 week follow-up appointment. Showering: You may shower with the Silverlon dressing in place. Do not let the shower spray hit the dressing directly. Pat the Silverlon dressing dry. If the dressing becomes wet underneath, then simply remove the dressing. Keep the incision dry until you are 7 days out from the day of surgery. After 7 days you may remove the Silverlon dressing and shower with the federico exposed. Let soapy water run over the federico and pat them dry. Do not scrub or soak the incision. Things To Watch For: * Drainage from the incision site that occurs more than one week after your surgery. * Increased redness at the incision site. * Fever above 102 degrees Fahrenheit. * Unusual chest pain or shortness of breath. * Call [facility] at with any of the above problems Follow-Up Visit: Follow-up with Dr. Alvarez's PA (Kirby Nava) 2-3 weeks after your day of surgery. He will remove your federico and answer any questions. If you have any additional questions or concerns, Dr Alvarez is usually in the office at the same time and will be available An appointment was probably scheduled when you signed-up for surgery in the office. If you have any questions call More detailed instructions as well as Frequently Asked Questions were provided in a folder by our office when you signed-up for surgery. Please review these instructions when you get home. If you have any further questions or concerns, please feel free to call the office at [phone] Pending Studies at Discharge: No Stand-Alone Forms: [facility], Smoking Cessation Medications and DC Order Prescriptions: New oxycodone 5 mg Tablet 5 mg PO Q6 PRN (Reason: pain) Qty: 30 0RF cefadroxil 500 mg capsule 500 mg PO BID 10 Days Qty: 20 0RF Continued hydroxychloroquine [Plaquenil] 200 mg tablet 200 mg PO BID Zyrtec 10 mg capsule 10 mg PO QAM venlafaxine [Effexor XR] 150 mg Capsule,Extended Release 24hr 150 mg PO QAM levothyroxine 75 mcg Tablet 75 mcg PO QAM lisinopril-hydrochlorothiazide 20-25 mg Tablet 1 tab PO QAM allopurinol 100 mg Tablet 100 mg PO BID methotrexate sodium 2.5 mg Tablet 10 mg PO Q7D Patient Comments: saturdays folic acid 1 mg Tablet 3 mg PO QAM ProAir RespiClick 90 mcg/actuation Aerosol Powdr Breath Activated 2 inh INHALATION USEASDIRECTD PRN (Reason: Shortness Of Breath Or Wheezing) Discharge Orders: Discharge Order (Routine); Ordered 11/18/23 Ordered By: Jean Carlos Coker Admission Data Admit Date/Time: 11/17/23 10:13 Attending Provider: Kirby Alvarez Admit Provider: Kirby Alvarez Primary Care Provider: Tabitha Weaver
== END 2023-11-18 12:33 | disposition home or self-care (01) ==
LOC: 3E 06:27 → ASU 06:27